=== PATIENT | female | born 1990 | race Caucasian/White ===

== ENCOUNTER 2016-12-05 21:02 | Inpatient (IN) | payer OTHER ==
[~2016-12-05] VITALS: Ht 160 cm; Wt 81.0 kg
[2016-12-05] MEDS ORDERED: CELEXA20 MG PO (23:45)
--- NOTE | 2016-12-06 02:08 | PR ---
[facility] [address], [place] [address] Signed Progress Notes IP Datetime Report Generated by CPN: 12/06/2016 02:08 PROGRESS NOTES: [id number] Impression: Normal progression of labor Procedures: Artificial ROM Plan: Continue present management; Anticipate Vaginal Delivery Informed Consent Obtain: Vaginal Delivery VITAL SIGNS: [id number] Vital Signs: Reviewed; Within Normal Limits EXAM: [id number] Dilatation: 8.0 Effacement: 100 Station: 0 Uterine Contractions: every one to two minutes MEMBRANES: [id number] Membrane Status: Bulging Amniotic Fluid Color: Clear Comments: patient is breathing through contractions, feeling a lot of pressure Fetus A: [id number] FHR Baseline: 140's Variability: Moderate 6-25bpm Accelerations: 15X15 Decelerations: None FHR Category: Category I Presentation: Vertex Comments on Fetus A: reactive Fetus B: [id number] Signing Physician: Melissa Vicente MD CC: *Electronically Signed* 12/06/16 0208 MELISSA VICENTE MD PATIENT NAME: ARTIS COPELAND PROGRESS NOTE DATE OF : 86 PHYSICIAN: MELISSA VICENTE MD RPT #: [id number] REPORT IS CONFIDENTIAL AND NOT TO BE RELEASED WITHOUT AUTHORIZATION
--- NOTE | 2016-12-06 04:12 | PR ---
[facility] [address] [facility] [facility] [address] [place], [place] [address] Signed Progress Notes IP Datetime Report Generated by CPN: 12/06/2016 04:12 PROGRESS NOTES: [id number] Impression: Normal progression of labor Procedures: Artificial ROM Plan: Anticipate Vaginal Delivery Informed Consent Obtain: Vaginal Delivery; Risks, Benefits and Alternatives Discussed VITAL SIGNS: [id number] Vital Signs: Reviewed; Within Normal Limits EXAM: [id number] Dilatation: 10.0 Effacement: 100 Station: 1 Uterine Contractions: every one to three minutes MEMBRANES: [id number] Membrane Status: Ruptured Amniotic Fluid Color: Clear Comments: patient feeling urge to push Fetus A: [id number] FHR Baseline: 120's Variability: Moderate 6-25bpm Accelerations: 15X15 Decelerations: None FHR Category: Category I Presentation: Vertex Comments on Fetus A: reactive Fetus B: [id number] Signing Physician: Melissa Vicente MD CC: *Electronically Signed* 12/06/16 0412 MELISSA VICENTE MD PATIENT NAME: ARTIS COPELAND PROGRESS NOTE DATE OF : 88 PHYSICIAN: MELISSA VICENTE MD RPT #: [id number] REPORT IS CONFIDENTIAL AND NOT TO BE RELEASED WITHOUT AUTHORIZATION
== END 2016-12-07 11:53 | disposition home or self-care (01) | DRG 775 ==
LOC: FBCO 21:02 → FBC 23:30 → MS 12-06 05:35 → FBC 12-06 05:35
PROVIDERS: ADMIT Obstetrics & Gynecology
PROC: 10907ZC Drainage of Amniotic Fluid, Therapeutic from Products of Conception, Via Natural or Artificial Opening (ICD-10-PCS; 2016-12-05)
PROC: 10E0XZZ Delivery of Products of Conception, External Approach (ICD-10-PCS; principal; 2016-12-06)
PROC: 0DQR0ZZ Repair Anal Sphincter, Open Approach (ICD-10-PCS; 2016-12-06)
DX: O70.21 Third degree perineal laceration during delivery, IIIa (principal); Z3A.39 39 weeks gestation of pregnancy; Z37.0 Single live birth; O69.81X0 Labor and delivery complicated by cord around neck, without compression, not applicable or unspecified
CPT/HCPCS: 36415; 59025; 85027; J2405; J2590; J7120

== ENCOUNTER 2017-01-21 06:00 | Day surgery (SDC) | payer OTHER ==
[~2017-01-21] VITALS: Ht 160 cm; Wt 71.2 kg
[~2017-01-21 06:00] MED LIST: CELEXA20 MG PO
[2017-01-21] MEDS ORDERED: VITAMIN D-32000 UNIT PO (06:21)
[2017-01-21] MEDS ORDERED: IRON18 MG PO (06:22)
[2017-01-21] MEDS ORDERED: AMOXICILLIN500 MG PO (06:31)
--- NOTE | 2017-01-21 06:32 | NUR ---
PT REPORTS THAT SHE HAS STARTED THE PROCESS OF A ROOT CANAL, SHE STATES THEY COMPLETED THE FIRST STEP OF IT 2 DAYS AGO. SHE REPORTS MOUTH PAIN FROM THAT PROCEDURE.
--- NOTE | 2017-01-21 10:44 | NUR ---
01/21/17 1044 Cheryl Mcclain 1037 PATIENT TO PACU AWAKE AND TALKING, DROWSY. RESP EVEN AND UNLABORED. MASK AT 6 LITERS. DENIES PAIN OR NAUSEA. 1043 PATIENT ON ROOM AIR. JUICE GIVEN.
--- NOTE | 2017-01-30 20:36 | OR ---
[facility] [address], [place] [address] Signed DATE OF PROCEDURE: 01/21/17 SURGEON: Karo Gusman M.D. PREOPERATIVE DIAGNOSIS: Breakdown of obstetric laceration. POSTOPERATIVE DIAGNOSIS: Breakdown of obstetric laceration. PROCEDURE PERFORMED: Revision of obstetric laceration. ANESTHESIA: Saddle block with IV sedation. ESTIMATED BLOOD LOSS: 75 cc. DRAINS: None. INDICATIONS AND FINDINGS The patient is a 26-year-old female, 1, para 1, who is status post a vaginal delivery, approximately 6-1/2 weeks ago. She did have a partial third-degree laceration per the delivery record. However, she was seen a few weeks ago when there was some breakdown of the repair and when she was re-evaluated this week, there was a gaping introitus with probable sphincter disruption. She was having difficulty controlling flatus. At the time of surgery, she had apparent complete disruption of the external sphincter. There was a gaping vaginal introitus and the vagina opened almost on to the anal area. DESCRIPTION OF PROCEDURE The patient was prepped and draped in the dorsal lithotomy position. The triangle of tissue was removed from the perineal area sharply. The vaginal mucosa was then undermined and incised in the midline approximately 3 inches into the vagina. The vaginal tissue was from the underlying tissue with a combination of blunt and sharp dissection. There was also a separation on the perineum of the skin to the underlying area. Following this, the perirectal fascial type tissue was reapproximated with interrupted sutures of 0 Vicryl. There was some bleeding vessels which were controlled with [id number] sutures of 2-0 chromic. Following this, the sphincter was dissected out from its scarred down canal surrounding the anus and these were pulled forward and slightly overlapped and repaired with interrupted sutures of 2-0 PDS. Multiple sutures were placed in this area. The perineal body was reapproximated with interrupted sutures of 2-0 PDS as well. Following this, there appeared to be good length of the perineum. A rectal examination was then done, which showed that there was no sutures compromising the rectal lumen and there did appear to be good depth of that rectovaginal septum. Following this, the vaginal mucosa was trimmed a fair amount as Electronically Signed By: KARO GUSMAN MD 01/30/17 2036 PATIENT NAME: ARTIS COPELAND OPERATIVE REPORT DATE OF : 86 PHYSICIAN: KARO GUSMAN MD REPORT #: [id number] REPORT IS CONFIDENTIAL AND NOT TO BE RELEASED WITHOUT AUTHORIZATION [facility] [address], [place] [address] Signed there was quite a bit of redundancy. There had also been a button hole on the patient's right and this was excised. The vaginal tissue was then closed with running suture of 2-0 Vicryl. This was done from the apex of that incision to near the hymenal ring. Following this, interrupted sutures were placed recreating the fourchette. The skin of the perineum was closed with subcuticular sutures of 3-0 Vicryl. Several interrupted sutures of 2-0 Vicryl were required along the vaginal mucosa within the vagina for control of bleeding. There were good length and caliber. There was good length to the perineum. At this point, all sponge and needle counts were correct. She was taken to the recovery room in good condition. Karo Gusman MD PJW/Eb /[id number] cc: [facility] Electronically Signed By: KARO GUSMAN MD 01/30/17 2036 PATIENT NAME: ARTIS COPELAND OPERATIVE REPORT DATE OF : 86 PHYSICIAN: KARO GUSMAN MD REPORT #: [id number] REPORT IS CONFIDENTIAL AND NOT TO BE RELEASED WITHOUT AUTHORIZATION
== END 2017-01-21 11:15 | disposition home or self-care (01) ==
LOC: DS 06:00
PROVIDERS: Obstetrics & Gynecology
PROC: 0UQGXZZ Repair Vagina, External Approach (ICD-10-PCS; principal; 2017-01-21 06:45)
DX: O90.1 Disruption of perineal obstetric wound (principal); F31.9 Bipolar disorder, unspecified; Z87.891 Personal history of nicotine dependence; Z98.818 Other dental procedure status; Z98.890 Other specified postprocedural states
CPT/HCPCS: 00942; 84703; 85025; J0694; J1100; J1885; J2250; J2405; J2704; J2765; J3010; J7120